=== PATIENT | male | born 1955 | race Two or more races ===

== ENCOUNTER 2017-03-01 17:29 | Emergency (ER) | payer BC ==
[~2017-03-01] VITALS: Ht 167.6 cm; Wt 93.9 kg
[2017-03-01 17:29] VITALS: BP 163/87
== END 2017-03-01 18:01 | disposition home or self-care (01) ==
LOC: ER 17:32
DX: J02.9 Acute pharyngitis, unspecified (principal); I10 Essential (primary) hypertension
CPT/HCPCS: 99283; A4606; Z7610